=== PATIENT | male | born 1970 | race Caucasian/White ===

== ENCOUNTER 2023-08-05 12:57 | Emergency (ER) | payer BC, OTHER ==
[~2023-08-05] VITALS: Ht 177.8 cm; Wt 101.6 kg
[2023-08-05 13:19] VITALS: BP_SYST 96; PULSE 92; RESP 18; TEMP 97.1; O2SAT 99
[2023-08-05] MEDS: KETOROLAC TROMETHAMINE 15 MG VIAL IM ONE (13:47)
[2023-08-05] MEDS: NACL 0.9% 1,000 ML IV ONE (14:05)
[2023-08-05 14:57] LABS: BILIRUBIN,URINE NEGATIVE (NEGATIVE); BLOOD, URINE NEGATIVE (NEGATIVE); CLARITY/URINE CLEAR (CLEAR); COLOR,URINE YELLOW (YELLOW); GLUCOSE,URINE 3+ (NEGATIVE); KETONES,URINE TRACE (NEGATIVE); LEUKOCYTE ESTERASE ,URINE NEGATIVE (NEGATIVE); NITRITE, URINE NEGATIVE (NEGATIVE); PH,URINE 5.5 (5.0-8.0); PROTEIN URINE NEGATIVE (NEGATIVE); UROBILINOGEN,URINE 0.2 (0.2-1.0)
[2023-08-05 15:06] LABS: BACTERIA,URINE RARE /HPF (None Seen); MUCUS,URINE None Seen /LPF (None Seen); RBC,URINE NONE SEEN /HPF (0-3); WBC,URINE 0-3 /HPF (0-3); YEAST,URINE Rare /HPF (None Seen)
[2023-08-05] MEDS ORDERED: INSULIN REGULAR, HUMAN 10 UNITS/0.1 ML, 3 ML VIAL ONE (16:16)
[2023-08-05] MEDS: metFORMIN HCL 500 MG TABLET PO ONE (16:34)
[2023-08-05] MEDS: INSULIN REGULAR, HUMAN 10 UNITS/0.1 ML, 3 ML VIAL IVP ONE (16:36)
[2023-08-05] MEDS ORDERED: DICL20GE TP (17:56)
[2023-08-05] MEDS ORDERED: DICL50TA9 PO (17:56)
[2023-08-05] MEDS ORDERED: METF-518 PO (17:56)
[2023-08-05 18:10] VITALS: BP_SYST 137; PULSE 82; RESP 18; TEMP 98; O2SAT 98
== END 2023-08-05 18:07 | disposition home or self-care (01) ==
LOC: SED 12:57
DX: M47.817 Spondylosis without myelopathy or radiculopathy, lumbosacral region (principal); E11.65 Type 2 diabetes mellitus with hyperglycemia; R73.9 Hyperglycemia, unspecified; Z79.899 Other long term (current) drug therapy
CPT/HCPCS: 99284; 96374; 96361; 81001; 72110; 96372; 82948; 81000; 81015; J1815; J1885; J7030